=== PATIENT | male | born 1990 | race Asian ===

== ENCOUNTER → 2020-05-08 | Outpatient (CLI) | payer OTHER ==
[2020-05-08 11:05] LABS: BASOPHIL % 0.4 % (0-2); PLATELET COUNT 246 x10^3mcL (130-400); RED CELL DISTRIBUTION WIDTH 12.5 % (11.5-14.5)
[2020-05-08 11:19] LABS: ALBUMIN 4.5 g/dL (3.4-5.0); ALKALINE PHOSPHATASE 65 U/L (46-116); ALT/SGPT 38 U/L (16-63); AST/SGOT 18 U/L (15-37); BILIRUBIN TOTAL 0.82 mg/dL (0.20-1.00); CALCIUM 9.5 mg/dL (8.5-10.1); CARBON DIOXIDE 31.4 mmol/L (21-32); CHLORIDE SERUM 102 mmol/L (98-107); CREATININE SERUM 1.2 mg/dL (0.7-1.3); GFR1 > 60 mL/min; GLUCOSE SERUM 100 mg/dL (74-106); HDL CHOLESTEROL 52 mg/dL (40-60); POTASSIUM SERUM 4.5 mmol/L (3.5-5.1); SODIUM SERUM 140 mmol/L (136-145)
[2020-05-08 11:25] LABS: CHOLESTEROL 212 mg/dL (<200); CHOLESTEROL/HDL RATIO 4.1; TRIGLYCERIDES 211 mg/dL (<150)
[2020-05-08 11:28] LABS: FREE T4 1.01 ng/dL (0.76-1.46); FREE THYROXINE INDEX 2.6 ug/dL (1.4-4.5)
[2020-05-08 11:35] LABS: T3 TOTAL 1.35 ng/mL
== END | disposition home or self-care (01) ==
LOC: LB 10:30
DX: R53.83 Other fatigue (principal)
CPT/HCPCS: 84439; U0003

== ENCOUNTER → 2020-05-18 | Outpatient (CLI) | payer OTHER | END | disposition home or self-care (01) | LOC: LB 12:33 | DX: E55.9 Vitamin D deficiency, unspecified (principal) | CPT/HCPCS: U0003 ==